=== PATIENT | male | born 1980 | race Two or more races ===

== ENCOUNTER 2016-10-13 11:26 | Emergency (ER) | payer SELFPAY ==
[2016-10-13 11:37] VITALS: BP 126/74
[2016-10-13] MEDS ORDERED: IBUP-1007 PO (11:44)
[2016-10-13] MEDS ORDERED: TRAM1TAB4 PO (11:44)
[2016-10-13] MEDS ORDERED: KETOROLAC TROMETHAMINE 60 MG/2 ML INJ. IM ONE (11:45)
--- NOTE | 2016-10-13 11:45 | PHYS DOC ---
Adult General Chief Complaint Chief Complaint: LOWEREXTREMITY INJURY HPI HPI Patient is a 36 year old male presents to the emergency department with complaints of right lower extremity pain. He states 11 days ago he was playing soccer when someone kicked him in the calf. Patient states he was able to continue playing [employer] and has been working since that time. He states the pain has been persistent without loss range of motion. Review of Systems Review of Systems Constitutional: Denies fever or chills [] Musculoskeletal: Right lower extremity pain/swelling Integument: Ecchymosis right lower extremity Physical Exam Physical Exam Constitutional: Well developed, well nourished, no acute distress, non-toxic appearance. [] Skin: Minimal ecchymosis noted to the medial aspect of the foot (dependent), no ecchymosis noted at the point of impact on the calf. Extremities: Right lower extremity, right knee and right ankle exam unremarkable. He has no bony tenderness over the anterior tibia. He has mild tenderness over the calf. Full range of motion of the knee and the ankle without difficulty or increasing pain. Neurovascular intact distally. Strength 5 Neurologic: Alert and oriented X 3, normal motor function, normal sensory function, no focal deficits noted. [] EKG EKG [] Radiology/Procedures Radiology/Procedures [] Course & Med Decision Making Course & Med Decision Making Pertinent Labs and Imaging studies reviewed. (See chart for details) [] Eliezer bandage applied per nursing staff. Patient tolerated well. Neurovascular intact post application. Dragon Disclaimer Dragon Disclaimer This electronic medical record was generated, in whole or in part, using a voice recognition dictation system. Departure Departure Impression: Primary Impression: Contusion of leg, right Disposition: 01 HOME, SELF-CARE Condition: STABLE Referrals: NO PCP (PCP) Patient Instructions: Contusion Additional Instructions: Eliezer bandage for comfort as needed. Ice to the affected area. Scripts Tramadol Hcl/Acetaminophen (TRAMADOL-ACETAMINOPHN 37.5-325) 1 Each Tablet 1 TAB PO Q6HRS Y for PAIN, #10 TAB Prov: KAREL REDDY APRN 10/13/16 Ibuprofen (IBUPROFEN) 600 Mg Tablet 600 MG PO PRN Q6HRS Y for INFLAMMATION, #20 TAB Prov: KAREL REDDY APRN 10/13/16 KAREL REDDY APRN Oct 13, 2016 11:45
== END 2016-10-13 12:00 | disposition home or self-care (01) ==
LOC: ER 11:26
DX: S80.11XA Contusion of right lower leg, initial encounter (principal); W50.1XXA Accidental kick by another person, initial encounter; Y93.66 Activity, soccer; Y92.89 Other specified places as the place of occurrence of the external cause; Y99.8 Other external cause status
CPT/HCPCS: 96372; 99283; J1885